=== PATIENT | female | born 1965 | race Caucasian/White ===

== ENCOUNTER 2022-05-28 16:32 | Emergency (ER) | payer BC ==
[~2022-05-28] VITALS: Ht 160 cm; Wt 96.6 kg
[2022-05-28 18:05] LABS: BASOPHILS % 0.9 % (0.0-1.0); EOSINOPHILS # (AUTO) 0.1 (0.0-0.4); EOSINOPHILS % 2.3 % (0.0-6.0); HEMATOCRIT 49.3 % (34.2-44.1); HEMOGLOBIN 17.2 g/dL (12.0-16.0); LYMPHOCYTES % 46.2 % (18.0-39.1); MEAN CORPUSCULAR HEMOGLOBIN 34.6 pg (28-32); MEAN CORPUSCULAR HGB CONC 34.9 g/dL (31-35); MEAN CORPUSCULAR VOLUME 99.2 fL (81-99); MONOCYTES # (AUTO) 0.4 (0.2-0.8); MONOCYTES % 9.9 % (4.4-11.3); NEUTROPHILS # (AUTO) 1.7 (2.1-6.9); PLATELET COUNT 246 x10e3/uL (140-360); RED BLOOD COUNT 4.97 x10e6/uL (3.6-5.1); RED CELL DISTRIBUTION WIDTH 13.5 % (11.7-14.4)
[2022-05-28 18:19] LABS: CLARITY,URINE SL CLOUDY (CLEAR); COLOR,URINE STRAW (YELLOW); KETONES,URINE TRACE (NEGATIVE); LEUKOCYTE ESTERASE ,URINE NEGATIVE (NEGATIVE); NITRITE,URINE NEGATIVE (NEGATIVE); PROTEIN,URINE DIPSTICK NEGATIVE (NEGATIVE); URINE UROBILINOGEN 0.2 mg/dL (0.2 - 1)
[2022-05-28 18:20] LABS: ANION GAP 15.4 mmol/L (8-16); CALCIUM 9.4 mg/dL (8.4-10.2); CREATININE, SERUM 0.96 mg/dL (0.57-1.11); POTASSIUM 4.4 mmol/L (3.5-5.1)
[2022-05-28 18:30] LABS: BACTERIA,URINE MODERATE /HPF; EPITHELIAL CELLS,URINE MODERATE /LPF
[2022-05-28 19:56] LABS: BASOPHILS # (AUTO) 0.1 (0.0-0.1); BASOPHILS % 1.1 % (0.0-1.0); EOSINOPHILS # (AUTO) 0.1 (0.0-0.4); EOSINOPHILS % 1.8 % (0.0-6.0); HEMATOCRIT 48.9 % (34.2-44.1); HEMOGLOBIN 17.3 g/dL (12.0-16.0); LYMPHOCYTES # (AUTO) 2.1 (1.0-3.2); LYMPHOCYTES % 46.3 % (18.0-39.1); MEAN CORPUSCULAR HEMOGLOBIN 35.2 pg (28-32); MEAN CORPUSCULAR HGB CONC 35.4 g/dL (31-35); MEAN CORPUSCULAR VOLUME 99.6 fL (81-99); MONOCYTES # (AUTO) 0.5 (0.2-0.8); NEUTROPHILS # (AUTO) 1.8 (2.1-6.9); NEUTROPHILS % 40.6 % (38.7-80.0); PLATELET COUNT 247 x10e3/uL (140-360); RED BLOOD COUNT 4.91 x10e6/uL (3.6-5.1); RED CELL DISTRIBUTION WIDTH 13.7 % (11.7-14.4)
[2022-05-28] MEDS ORDERED: ONDANSETRON ODT4 MG PO (20:18)
[2022-05-28] MEDS ORDERED: PROTONIX40 MG PO (20:18)
[2022-05-28 20:26] VITALS: BP 148/79
[2022-05-28] MEDS ORDERED: SODIUM CHLORIDE 0.9% 100 ML ONE (20:54)
[2022-05-28] MEDS ORDERED: IOPAMIDOL 370 MG/ML 100 ML INFUS..BTL INJ ONE (20:54)
[2022-05-29] MEDS ORDERED: NEURONTIN400 MG PO (12:38)
[2022-05-29] MEDS ORDERED: BYSTOLIC2.5 MG PO (12:38)
[2022-05-29] MEDS ORDERED: BRIVIACT100 MG PO (12:39)
[2022-05-29] MEDS ORDERED: SYNTHROID112 MCG PO (12:40)
[2022-05-29] MEDS ORDERED: BUSPIRONE HCL5 MG PO (12:40)
[2022-05-29] MEDS ORDERED: CLONAZEPAM0.5 MG PO (12:41)
[2022-05-29] MEDS ORDERED: ARIMIDEX1 MG PO (12:42)
[2022-05-29] MEDS ORDERED: EMGALITY P120 MG/1 M INJ (12:42)
== END 2022-05-28 20:26 | disposition home or self-care (01) ==
LOC: ER 17:07
DX: K92.0 Hematemesis (principal); F10.10 Alcohol abuse, uncomplicated; S00.83XA Contusion of other part of head, initial encounter; W18.39XA Other fall on same level, initial encounter; Y93.89 Activity, other specified; Z20.822 Contact with and (suspected) exposure to COVID-19; E03.9 Hypothyroidism, unspecified; G40.909 Epilepsy, unspecified, not intractable, without status epilepticus; K21.9 Gastro-esophageal reflux disease without esophagitis; M79.7 Fibromyalgia
CPT/HCPCS: 36415; 70450; 74174; 80053; 80320; 81001; 83690; 85025; 93005; 99284; C9113; J7050; Q9967; U0002

== ENCOUNTER → 2022-05-29 | Day surgery (SDC) | payer BC ==
[~2022-05-29] MED LIST: ARIMIDEX1 MG PO; BRIVIACT100 MG PO; BUSPIRONE HCL5 MG PO; BYSTOLIC2.5 MG PO; CLONAZEPAM0.5 MG PO; EMGALITY P120 MG/1 M INJ; FENTANYL CITRATE/PF 100MCG/2 ML INJ ONE; LIDOCAINE HCL 2% LOCAL INJ 5 ML SDV VIAL INJ ONE; METOCLOPRAMIDE HCL 10 MG/2ML VIAL ONE; MIDAZOLAM HCL 2 MG/2 ML VIAL ONE; NEURONTIN400 MG PO; ONDANSETRON HCL INJ 2MG/ML 2ML 2 MG/ML VIAL ONE; ONDANSETRON ODT4 MG PO; POVIDONE IODINE 0.05% 0.05 % ML PO ONE; PROPOFOL IV EMULSION 10 MG/ML 20 ML VIAL ONE; PROTONIX40 MG PO; SYNTHROID112 MCG PO
[2022-05-29 14:05] VITALS: BP 133/80
== END | disposition home or self-care (01) ==
LOC: OR 11:41
PROVIDERS: ATTEND Internal Medicine Gastroenterology
DX: K92.0 Hematemesis (principal); K29.50 Unspecified chronic gastritis without bleeding; K25.9 Gastric ulcer, unspecified as acute or chronic, without hemorrhage or perforation; K29.80 Duodenitis without bleeding; R13.10 Dysphagia, unspecified; K22.89 Other specified disease of esophagus; K21.9 Gastro-esophageal reflux disease without esophagitis; K44.9 Diaphragmatic hernia without obstruction or gangrene; E66.9 Obesity, unspecified; J45.909 Unspecified asthma, uncomplicated; R56.9 Unspecified convulsions; M79.7 Fibromyalgia; R55 Syncope and collapse; E03.9 Hypothyroidism, unspecified; N20.0 Calculus of kidney; M26.609 Unspecified temporomandibular joint disorder, unspecified side; F41.9 Anxiety disorder, unspecified; F32.A Depression, unspecified; Z88.6 Allergy status to analgesic agent; Z88.1 Allergy status to other antibiotic agents; Z79.899 Other long term (current) drug therapy; Z68.38 Body mass index [BMI] 38.0-38.9, adult; Z85.3 Personal history of malignant neoplasm of breast; Z91.81 History of falling
CPT/HCPCS: 43239; 43450; C9113; J2001; J2250; J2405; J2704; J2765; J3010